=== PATIENT | male | born 1950 | race Caucasian/White ===

== ENCOUNTER → 2017-11-04 18:44 | Outpatient (CLI) | payer OTHER | END | disposition home or self-care (01) | LOC: LAB 18:44 | DX: R97.20 Elevated prostate specific antigen [PSA] (principal) ==

== ENCOUNTER 2017-12-08 07:05 | Outpatient (CLI) | payer OTHER | END 2017-12-08 07:22 | disposition home or self-care (01) | LOC: SONOGRAMA 07:05 | DX: R97.20 Elevated prostate specific antigen [PSA] (principal) ==

== ENCOUNTER → 2022-12-01 10:10 | Outpatient (CLI) | payer OTHER | END | disposition home or self-care (01) | LOC: LAB 10:10 | PROVIDERS: ATTEND Urology | DX: R97.20 Elevated prostate specific antigen [PSA] (principal) ==

== ENCOUNTER 2022-12-09 07:09 | Outpatient (CLI) | payer OTHER | END 2022-12-09 07:17 | disposition home or self-care (01) | LOC: SONOGRAMA 07:09 | PROVIDERS: ATTEND Urology | DX: C61 Malignant neoplasm of prostate (principal); D29.1 Benign neoplasm of prostate; R97.20 Elevated prostate specific antigen [PSA] ==